=== PATIENT | male | born 1990 | race Two or more races ===

== ENCOUNTER 2019-07-24 16:49 | Inpatient (IN) | payer MEDICAID ==
[~2019-07-24] VITALS: Ht 182.9 cm; Wt 115.2 kg
[2019-07-24] MEDS ORDERED: FLUO-191 PO (17:55)
[2019-07-24] MEDS ORDERED: QUET100T PO (17:55)
[2019-07-24] MEDS ORDERED: MELA3TAB82 PO (17:55)
[2019-07-24] MEDS ORDERED: TOPI25 PO (17:55)
[2019-07-24] MEDS ORDERED: LOSA-88 PO (17:55)
[2019-07-24] MEDS ORDERED: TRAZ-257 PO (17:55)
[2019-07-24] MEDS ORDERED: BUSP10TA23 PO (17:55)
[2019-07-24] MEDS ORDERED: TUBERCULIN, PURIFIED PROTEIN DERIVATIVE 5 TU/0.1 ML SYRINGE ID ONE (18:00)
[2019-07-24] MEDS ORDERED: GuaiFENesin/D-METHORPHAN [SUGAR-FREE] 200-20MG/10 ML SYRUP UDCUP PO PRN (18:00)
[2019-07-24] MEDS ORDERED: MAG HYDROX/AL HYDROX/SIMETH ES 30 ML SUSPENSION UDCUP PO PRN (18:00)
[2019-07-24] MEDS ORDERED: PROMETHAZINE HCL 25 MG TABLET PO PRN (18:00)
[2019-07-24] MEDS ORDERED: HydrOXYzine PAMOATE 50 MG CAPSULE PO PRN (18:00)
[2019-07-24] MEDS ORDERED: ZOLPIDEM TARTRATE 10 MG TABLET PO PRN (18:00)
[2019-07-24] MEDS ORDERED: MAGNESIUM HYDROXIDE SUSPENSION 30 ML UDCUP PO PRN (18:00)
[2019-07-24] MEDS ORDERED: ACETAMINOPHEN 325 MG TABLET PO PRN (18:00)
[2019-07-24] MEDS ORDERED: QUEtiapine FUMARATE 100 MG TABLET PO PRN (18:00)
[2019-07-24] MEDS ORDERED: LOPERAMIDE HCL 2 MG CAPSULE PO PRN (18:00)
[2019-07-24] MEDS ORDERED: PNEUMOCOCCAL VACCINE POLYVALENT 0.5 ML VIAL [PPSV23] IM ONE (19:45)
[2019-07-24] MEDS ORDERED: INFLUENZA VIRUS VACCINE QVS 2019-20 (3YR+)/PF 60 MCG/0.5 ML SYRINGE IM ONE (19:45)
[2019-07-24 20:18] VITALS: BP 161/90
[2019-07-24 21:00] VITALS: BP 141/82
[2019-07-24] MEDS: MELATONIN 5 MG TABLET PO SCH ×2 (21:00→21:43)
[2019-07-24] MEDS ORDERED: QUEtiapine FUMARATE 100 MG TABLET PO SCH (21:00)
[2019-07-24] MEDS: TOPIRAMATE 25 MG TABLET PO SCH (21:09)
[2019-07-24] MEDS: TraZODone HCL 100 MG TABLET PO SCH (21:09)
[2019-07-24] MEDS: THIAMINE HCL 100 MG TABLET PO SCH (21:09)
[2019-07-24] MEDS: BusPIRone HCL 5 MG TABLET PO SCH (21:09)
[2019-07-25 04:31] VITALS: BP 133/65
[2019-07-25 08:08] VITALS: BP 110/43
[2019-07-25 08:15] LABS: BASOPHILS % (AUTO) 1.5 % (0.0-2.0); EOSINOPHILS % (AUTO) 2.9 % (1.0-6.0); HEMATOCRIT 50.2 % (41-53); HEMOGLOBIN 16.9 g/dL (13.5-17.5); LYMPHOCYTES # (AUTO) 2.9 K/uL (1.0-4.8); LYMPHOCYTES % (AUTO) 44.4 % (22.0-44.0); MEAN CORPUSCULAR HEMOGLOBIN 30.2 pg (26.0-34.0); MEAN CORPUSCULAR HGB CONC 33.6 G/dL (31.0-37.0); MEAN CORPUSCULAR VOLUME 90 fL (80-100); MONOCYTES # (AUTO) 0.5 K/uL (0.1-1.0); MONOCYTES % (AUTO) 8.1 % (2.0-9.0); NEUTROPHILS # (AUTO) 2.8 K/uL (1.8-7.7); NEUTROPHILS % (AUTO) 43.1 % (40.0-70.0); PLATELET COUNT (AUTO) 248 K/uL (150-450); RED BLOOD CELL COUNT(AUTO) 5.58 MIL/uL (4.50-5.90); RED CELL DISTRIBUTION WIDTH 14.8 % (11.5-14.5)
[2019-07-25 08:23] LABS: HEMOGLOBIN A1C 5.7 % (3.8-5.6)
[2019-07-25] MEDS: THIAMINE HCL 100 MG TABLET PO SCH ×2 (08:23→16:50)
[2019-07-25] MEDS: FLUoxetine HCL 20 MG CAPSULE PO SCH (08:23)
[2019-07-25] MEDS: FOLIC ACID 1 MG TABLET PO SCH (08:23)
[2019-07-25] MEDS: MULTIVITAMINS WITH MINERALS, THERAPEUTIC TABLET PO SCH (08:23)
[2019-07-25] MEDS: NALTREXONE HCL 50 MG TABLET PO SCH (08:23)
[2019-07-25] MEDS: LOSARTAN POTASSIUM 50 MG TABLET PO SCH (08:25)
[2019-07-25] MEDS: BusPIRone HCL 5 MG TABLET PO SCH ×2 (08:26→12:45)
[2019-07-25 08:43] LABS: ALANINE AMINOTRANSFERASE 162 U/L (12-78); ALBUMIN 3.6 g/dL (3.4-5.0); ALKALINE PHOSPHATASE 70 U/L (46-116); ANION GAP 8 mmol/L (8-16); ASPARTATE AMINOTRANSFERASE 59 U/L (15-37); BILIRUBIN,TOTAL 0.2 mg/dL (0.1-1.0); CALCIUM, TOTAL 8.9 mg/dL (8.8-10.5); CARBON DIOXIDE 27 mmol/L (22-29); CHLORIDE 106 mmol/L (98-107); CHOL/HDL RATIO 7.5 (4.2-7.3); CHOLESTEROL 218 mg/dL (131-200); FREE T4 (FREE THYROXINE) 0.93 ng/dL (0.76-1.46); GLOMERULAR FILTR. RATE CALC > 60 mL/min (>60); GLUCOSE,RANDOM 94 mg/dL (70-110); HDL CHOLESTEROL 29 mg/dL (40-60); LDL CHOL (CALC.) 150 mg/dL (0-130); POTASSIUM 3.8 mmol/L (3.5-5.1); SODIUM SERUM 141 mmol/L (136-145); THYROID STIMULATING HORMONE 1.27 uIU/mL (0.36-3.74); TOTAL PROTEIN, SERUM 7.2 g/dL (6.4-8.2); TRIGLYCERIDES 193 mg/dL (15-150); UREA NITROGEN, BLOOD 16 mg/dL (7-18)
[2019-07-25 16:00] VITALS: BP 113/64
[2019-07-25] MEDS: LORazepam 2 MG TABLET PO PRN (16:50)
[2019-07-25] MEDS: BusPIRone HCL 10 MG TABLET PO SCH (16:50)
[2019-07-25] MEDS: TOPIRAMATE 25 MG TABLET PO SCH (20:55)
[2019-07-25] MEDS: TraZODone HCL 100 MG TABLET PO SCH (20:55)
[2019-07-25] MEDS: MELATONIN 5 MG TABLET PO SCH (20:55)
[2019-07-25] MEDS ORDERED: QUEtiapine FUMARATE 200 MG TABLET PO SCH (21:00)
[2019-07-26 06:24] VITALS: BP 121/64
[2019-07-26 08:00] VITALS: BP 125/58
[2019-07-26] MEDS: NALTREXONE HCL 50 MG TABLET PO SCH (08:53)
[2019-07-26] MEDS: FLUoxetine HCL 20 MG CAPSULE PO SCH (08:53)
[2019-07-26] MEDS: LOSARTAN POTASSIUM 50 MG TABLET PO SCH (08:53)
[2019-07-26] MEDS: MULTIVITAMINS WITH MINERALS, THERAPEUTIC TABLET PO SCH (08:53)
[2019-07-26] MEDS: BusPIRone HCL 10 MG TABLET PO SCH ×3 (08:53→16:35)
[2019-07-26] MEDS: THIAMINE HCL 100 MG TABLET PO SCH ×2 (08:53→16:35)
[2019-07-26] MEDS: FOLIC ACID 1 MG TABLET PO SCH (08:53)
[2019-07-26 16:06] VITALS: BP 122/79
[2019-07-26] MEDS: TOPIRAMATE 25 MG TABLET PO SCH (20:35)
[2019-07-26] MEDS: MELATONIN 5 MG TABLET PO SCH (20:36)
[2019-07-26] MEDS: TraZODone HCL 100 MG TABLET PO SCH (20:36)
[2019-07-26] MEDS ORDERED: QUEtiapine FUMARATE 200 MG TABLET PO SCH (21:00)
[2019-07-27 06:36] VITALS: BP 115/66
[2019-07-27 08:18] VITALS: BP 139/69
[2019-07-27] MEDS: FOLIC ACID 1 MG TABLET PO SCH (09:14)
[2019-07-27] MEDS: LOSARTAN POTASSIUM 50 MG TABLET PO SCH (09:14)
[2019-07-27] MEDS: FLUoxetine HCL 20 MG CAPSULE PO SCH (09:15)
[2019-07-27] MEDS: MULTIVITAMINS WITH MINERALS, THERAPEUTIC TABLET PO SCH (09:15)
[2019-07-27] MEDS: BusPIRone HCL 10 MG TABLET PO SCH ×3 (09:15→17:02)
[2019-07-27] MEDS: THIAMINE HCL 100 MG TABLET PO SCH ×2 (09:15→17:02)
[2019-07-27] MEDS: NALTREXONE HCL 50 MG TABLET PO SCH (09:15)
[2019-07-27 16:09] VITALS: BP 132/72
[2019-07-27] MEDS: MELATONIN 5 MG TABLET PO SCH (20:46)
[2019-07-27] MEDS: TraZODone HCL 100 MG TABLET PO SCH (20:47)
[2019-07-27] MEDS: TOPIRAMATE 25 MG TABLET PO SCH (20:48)
[2019-07-27] MEDS: QUEtiapine FUMARATE 200 MG TABLET PO SCH (20:48)
[2019-07-27] MEDS ORDERED: QUEtiapine FUMARATE 300 MG TABLET PO SCH (21:00)
[2019-07-28 07:16] VITALS: BP 98/63
[2019-07-28 08:25] VITALS: BP 115/66
[2019-07-28] MEDS: THIAMINE HCL 100 MG TABLET PO SCH ×2 (09:13→16:04)
[2019-07-28] MEDS: MULTIVITAMINS WITH MINERALS, THERAPEUTIC TABLET PO SCH (09:13)
[2019-07-28] MEDS: FLUoxetine HCL 20 MG CAPSULE PO SCH (09:14)
[2019-07-28] MEDS: NALTREXONE HCL 50 MG TABLET PO SCH (09:14)
[2019-07-28] MEDS: LOSARTAN POTASSIUM 50 MG TABLET PO SCH (09:14)
[2019-07-28] MEDS: BusPIRone HCL 10 MG TABLET PO SCH ×2 (09:14→13:11)
[2019-07-28] MEDS: FOLIC ACID 1 MG TABLET PO SCH (09:14)
[2019-07-28] MEDS: LORazepam 2 MG TABLET PO PRN (09:48)
[2019-07-28 16:08] VITALS: BP 117/63
[2019-07-28] MEDS: MELATONIN 5 MG TABLET PO SCH (20:08)
[2019-07-28] MEDS: QUEtiapine FUMARATE 200 MG TABLET PO SCH (20:09)
[2019-07-29 06:03] VITALS: BP 126/82
[2019-07-29] MEDS: LOSARTAN POTASSIUM 50 MG TABLET PO SCH (08:33)
[2019-07-29] MEDS: FOLIC ACID 1 MG TABLET PO SCH (08:33)
[2019-07-29] MEDS: MULTIVITAMINS WITH MINERALS, THERAPEUTIC TABLET PO SCH (08:33)
[2019-07-29] MEDS: NALTREXONE HCL 50 MG TABLET PO SCH (08:33)
[2019-07-29] MEDS: FLUoxetine HCL 20 MG CAPSULE PO SCH (08:33)
[2019-07-29] MEDS: THIAMINE HCL 100 MG TABLET PO SCH ×2 (08:33→16:24)
[2019-07-29 08:37] VITALS: BP 118/74
[2019-07-29 16:00] VITALS: BP 127/66
[2019-07-29] MEDS: LORazepam 2 MG TABLET PO PRN (16:24)
[2019-07-29] MEDS: MELATONIN 5 MG TABLET PO SCH (20:17)
[2019-07-29] MEDS: QUEtiapine FUMARATE 200 MG TABLET PO SCH (20:17)
[2019-07-30 05:14] VITALS: BP 124/72
[2019-07-30 08:00] VITALS: BP 128/79
[2019-07-30] MEDS: FOLIC ACID 1 MG TABLET PO SCH (08:49)
[2019-07-30] MEDS: THIAMINE HCL 100 MG TABLET PO SCH ×2 (08:49→16:41)
[2019-07-30] MEDS: NALTREXONE HCL 50 MG TABLET PO SCH (08:49)
[2019-07-30] MEDS: MULTIVITAMINS WITH MINERALS, THERAPEUTIC TABLET PO SCH (08:49)
[2019-07-30] MEDS: LOSARTAN POTASSIUM 50 MG TABLET PO SCH (08:50)
[2019-07-30] MEDS: FLUoxetine HCL 20 MG CAPSULE PO SCH (08:50)
[2019-07-30 16:09] VITALS: BP 144/61
[2019-07-30] MEDS: LORazepam 2 MG TABLET PO PRN (16:41)
[2019-07-30 17:15] VITALS: BP 124/66
[2019-07-30] MEDS: QUEtiapine FUMARATE 200 MG TABLET PO SCH (20:10)
[2019-07-30] MEDS: MELATONIN 5 MG TABLET PO SCH (20:10)
[2019-07-31 03:29] VITALS: BP 134/69
[2019-07-31 08:11] VITALS: BP 118/66
[2019-07-31] MEDS: MULTIVITAMINS WITH MINERALS, THERAPEUTIC TABLET PO SCH (09:07)
[2019-07-31] MEDS: FOLIC ACID 1 MG TABLET PO SCH (09:07)
[2019-07-31] MEDS: FLUoxetine HCL 20 MG CAPSULE PO SCH (09:07)
[2019-07-31] MEDS: LOSARTAN POTASSIUM 50 MG TABLET PO SCH (09:07)
[2019-07-31] MEDS: NALTREXONE HCL 50 MG TABLET PO SCH (09:07)
[2019-07-31] MEDS: THIAMINE HCL 100 MG TABLET PO SCH ×2 (09:07→16:39)
[2019-07-31 16:09] VITALS: BP 136/74
[2019-07-31] MEDS: LORazepam 2 MG TABLET PO PRN (16:39)
[2019-07-31] MEDS: MELATONIN 5 MG TABLET PO SCH (20:32)
[2019-07-31] MEDS ORDERED: NALT50TA PO (20:33)
[2019-07-31] MEDS ORDERED: QUET200T29 PO (20:33)
[2019-07-31] MEDS: QUEtiapine FUMARATE 200 MG TABLET PO SCH (20:33)
[2019-07-31] MEDS ORDERED: FLUO-191 PO (20:33)
[2019-07-31] MEDS ORDERED: MELA5TAB3 PO (20:33)
[2019-07-31] MEDS ORDERED: OMEG-135 PO (20:33)
[2019-08-01 06:48] VITALS: BP 114/70
[2019-08-01 08:16] VITALS: BP 126/81
[2019-08-01] MEDS: FOLIC ACID 1 MG TABLET PO SCH (08:52)
[2019-08-01] MEDS: MULTIVITAMINS WITH MINERALS, THERAPEUTIC TABLET PO SCH (08:53)
[2019-08-01] MEDS: NALTREXONE HCL 50 MG TABLET PO SCH (08:53)
[2019-08-01] MEDS: THIAMINE HCL 100 MG TABLET PO SCH (08:53)
[2019-08-01] MEDS: LOSARTAN POTASSIUM 50 MG TABLET PO SCH (09:00)
[2019-08-01] MEDS ORDERED: FLUoxetine HCL 20 MG CAPSULE PO SCH (09:00)
[2019-08-01] MEDS ORDERED: OMEGA-3/DHA/EPA/FISH OIL 1,000 MG CAPSULE PO SCH (09:00)
== END 2019-08-01 10:54 | disposition home or self-care (01) | DRG 751 ==
LOC: B3A 18:31
PROVIDERS: ADMIT Psychiatry & Neurology Psychiatry; ATTEND Psychiatry & Neurology Psychiatry
PROC: 3E0234Z Introduction of Serum, Toxoid and Vaccine into Muscle, Percutaneous Approach (ICD-10-PCS; principal; 2019-07-25)
PROC: 3E02340 Introduction of Influenza Vaccine into Muscle, Percutaneous Approach (ICD-10-PCS; 2019-07-25)
DX: F33.3 Major depressive disorder, recurrent, severe with psychotic symptoms (principal); R45.851 Suicidal ideations; Z91.19 Patient's noncompliance with other medical treatment and regimen; E66.9 Obesity, unspecified; Z23 Encounter for immunization; F15.90 Other stimulant use, unspecified, uncomplicated; G47.00 Insomnia, unspecified; F17.210 Nicotine dependence, cigarettes, uncomplicated; I10 Essential (primary) hypertension; Z79.899 Other long term (current) drug therapy; Z68.34 Body mass index [BMI] 34.0-34.9, adult
CPT/HCPCS: 83036; 84439; 84443; 86592; 90686; 90732